=== PATIENT | female | born 1955 | race Caucasian/White ===

== ENCOUNTER → 2020-01-25 | Outpatient (CLI) | payer OTHER ==
--- NOTE | 2020-01-25 12:47 | REP ---
Right wrist series: Four views. History: Right wrist and hand pain. Findings: Four views of the right wrist demonstrate a comminuted intra-articular slightly impacted fracture of the distal radius in the metaphyseal region with associated soft-tissue swelling. There is osteoarthritic spurring and slight narrowing at the first carpometacarpal articulation. Lateral radiograph shows subtle irregularity at the dorsal aspect of the triquetrum and I cannot exclude a dorsal triquetral chip fracture. No other carpal injury is appreciated. There is soft tissue swelling dorsally over the metacarpals as well. Impression: Comminuted impacted intra-articular fracture of the distal radial metaphysis. Question dorsal triquetral chip fracture. Associated swelling. Electronically Signed by Tye Eden MD 01/25/2020 12:39 P
--- NOTE | 2020-01-25 13:31 | REP ---
RIGHT HAND SERIES: Four views. HISTORY: Pain in the right wrist and hand. FINDINGS: Four views of the right hand demonstrate an impacted intra-articular fracture of the distal radius with associated swelling. No carpal or metacarpal fracture is seen. There is minimal osteoarthritic spurring at the first carpometacarpal articulation. No erosive changes are seen. IMPRESSION: Intra-articular comminuted and somewhat impacted fracture of the distal radius. Electronically Signed by Tye Eden MD 01/25/2020 01:40 P
== END ==
LOC: M ADAMS 12:17
PROVIDERS: ATTEND Physician Assistant
DX: M25.531 Pain in right wrist (principal); M79.641 Pain in right hand